=== PATIENT | male | born 1995 | race African-American/Black ===

== ENCOUNTER 2017-01-16 08:06 | Emergency (ER) | payer OTHER ==
[~2017-01-16] VITALS: Ht 177.8 cm; Wt 73.9 kg
[2017-01-16 08:29] VITALS: BP 134/69
--- NOTE | 2017-01-16 08:34 | Emergency Room Report ---
History of Present Illness General Chief Complaint: Eye Problems Source: Patient Present Illness HPI 21-year-old male no significant past medical history presenting with right eye lid swelling for one month. Patient states he went to an urgent care as performed warm compresses intermittently which only for relieve this pain for a short amount of time. Patient has also been putting topical ointment which has not provided any relief. Denies any fever chills headache change in vision purulent drainage Allergies: Coded Allergies: No Known Allergies (Unverified , 01/16/17) Patient History Past Medical History: none Past Surgical History: none Pertinent Family History: none Nursing Documentation-[facility] Past Medical History: No Stated History Review of Systems All Other Systems: negative except mentioned in HPI Physical Exam Vital Signs Date Time Temp Pulse Resp B/P Pulse Ox O2 Delivery O2 Flow Rate FiO2 01/16/17 08:10 97.5 63 15 134/69 100 Room Air Sp02 EP Interpretation: reviewed, normal General Appearance: normal inspection, well appearing, no apparent distress, alert, GCS 15, non-toxic Head: normocephalic, atraumatic Eyes: right eye other - R upper eyelid chalazion TTP <1cm , bilateral eye EOMI , bilateral eye PERRL, bilateral eye normal inspection, bilateral eye visual acuity ENT: normal ENT inspection, normal pharynx, normal voice, moist mucus membranes Neck: normal inspection, full range of motion, supple Respiratory: normal inspection, lungs clear, normal breath sounds, no respiratory distress, no retraction, no wheezing, speaking full sentences, chest symmetrical Cardiovascular #1: normal inspection, regular rate, rhythm, normal capillary refill Gastrointestinal: normal inspection, non tender, soft Musculoskeletal: normal inspection, back normal, normal range of motion, non- tender Neurologic: normal inspection, alert, oriented x3, responsive, motor strength/ tone normal, sensory intact, normal gait, speech normal Psychiatric: normal inspection, judgement/insight normal, memory normal Skin: normal inspection, normal color, no rash, warm/dry, well hydrated, normal turgor Medical Decision Making Diagnostic Impression: Primary Impression: Chalazion of right upper eyelid ER Course 21 yo M w/ R upper eyelid swelling x 1 mo appears to be chalazion on physical exam. There does not appear to be any acute infection so no antibiotics are indicated at this time. Plan: No intervention indicated at this time Disposition: Patient is to be discharged to home Patient is instructed to followup with an electric freight car operator within one week. Patient is told that this is likely a chalazion, and he may need injection or incision and drainage by an electric freight car operator. [employer] Team Leader may also perform biopsy. Strict return precautions discussed with patient such as fever chills rapid spread around the eye or change in vision.Patient is instructed to continue warm compresses. Last Vital Signs Date Time Temp Pulse Resp B/P Pulse Ox O2 Delivery O2 Flow Rate FiO2 01/16/17 08:10 97.5 63 15 134/69 100 Room Air Disposition: HOME, SELF-CARE Condition: Stable Patient Instructions: Chalazion Additional Instructions: Please follow up with your primary care doctor within 3 days. Please make an appointment to see an electric freight car operator within 1 week. Please call your insurance to find an electric freight car operator or you may also call: Dr Davin Gabriel - [phone] Please return to the emergency room immediately if you are experiencing severe or worsening pain, high fevers or chills, spread of rash to face, or vision loss. Julieta King M.D. Jan 16, 2017 08:34
[2017-01-16 08:35] VITALS: BP 134/69
== END 2017-01-16 08:48 | disposition home or self-care (01) ==
LOC: EMR 08:35
DX: H00.11 Chalazion right upper eyelid (principal)
CPT/HCPCS: 99282

== ENCOUNTER 2017-07-21 20:19 | Emergency (ER) | payer OTHER ==
[~2017-07-21] VITALS: Ht 177.8 cm; Wt 62.1 kg
[2017-07-21 20:40] VITALS: BP 123/77
[2017-07-21] MEDS ORDERED: Methocarbamol 750mg tab ORAL ONE (21:15)
[2017-07-21] MEDS ORDERED: Ketorolac 30mg Inj IM ONE (21:15)
[2017-07-21] MEDS ORDERED: IBUPROFEN600 MG ORAL (21:18)
[2017-07-21] MEDS ORDERED: LIDOCAINE700 M1 TP (21:18)
[2017-07-21] MEDS ORDERED: ROBAXIN-750750 MG PO (21:18)
[2017-07-21 21:28] VITALS: BP 123/77
--- NOTE | 2017-07-21 22:22 | Emergency Room Report ---
History of Present Illness General Chief Complaint: Back Injury Source: Patient Present Illness HPI 21-year-old male with chronic back pain for 4 years p/w back pain. Pain is localized to bilateral upper and lower back, sharp in nature, no radiation. Movement worsens pain. There are no alleviating factors. Patient did not take any medication for the pain Patient has experienced this similar pain in the past. Mother at bedside, states that patient has a history of scoliosis, has had chronic back pain, but has not seen a doctor recently for it. Denies trauma. Denies lower extremity weakness/numbness, no bowel/bladder retention or incontinence, saddle anesthesia. Denies fever, chills, abdominal pain, n/v, dysuria/hematuria. No history of IVDA Allergies: Coded Allergies: No Known Allergies (Unverified , 01/16/17) Patient History Past Medical History: see triage record Past Surgical History: none Pertinent Family History: none Reviewed Nursing Documentation: PMH: Agreed, PSxH: Agreed Nursing Documentation-PMH Past Medical History: No Stated History Review of Systems All Other Systems: negative except mentioned in HPI Physical Exam Vital Signs Date Time Temp Pulse Resp B/P (MAP) Pulse Ox O2 Delivery O2 Flow Rate FiO2 07/21/17 20:36 97.8 87 18 123/77 98 Room Air 97.9 Sp02 EP Interpretation: reviewed, normal General Appearance: alert, GCS 15, non-toxic, mild distress Head: normocephalic, atraumatic Eyes: bilateral eye normal inspection, bilateral eye PERRL, bilateral eye EOMI ENT: normal ENT inspection, normal pharynx, normal voice, moist mucus membranes Neck: normal inspection, full range of motion, supple Respiratory: normal inspection, lungs clear, normal breath sounds, no respiratory distress, no retraction, no wheezing, speaking full sentences, chest symmetrical Cardiovascular #1: normal inspection, regular rate, rhythm, no edema, normal capillary refill Cardiovascular #2: 2+ radial (R), 2+ radial (L) Gastrointestinal: normal inspection, non tender, soft, non-distended, no guarding Musculoskeletal: other - Bilateral paraspinal upper thoracic tenderness, no midline tenderness, full range of motion of back, full range of motion of all other extremities Neurologic: normal inspection, alert, oriented x3, responsive, whale trainer III-XII nml as tested, motor strength/tone normal, sensory intact, normal gait, speech normal Psychiatric: normal inspection, judgement/insight normal, memory normal Skin: normal inspection, normal color, no rash, warm/dry, well hydrated, normal turgor Medical Decision Making Diagnostic Impression: Primary Impression: Chronic back pain ER Course 21-year-old male with chronic back pain p/w back pain DDX: Likely musculoskeletal back pain vs. muscular strain vs. sciatica Fracture is unlikely given patients age, no midline tenderness, no history of trauma, and that patient is ambulatory. Therefore, at this time no imaging is indicated Serious diagnoses such as cord compression, epidural abscess is unlikely in this patient given the clinical scenario and abscess of neurological symptoms or findings. Patient appears nontoxic. Plan: Toradol, robaxin ER course: Patient has remained nontoxic appearing and ambulatory in the ED. Pain improved w/ medications Disposition: Patient will be discharged to home with prescription of motrin and robaxin., Lidocaine patches Patient and mother was educated that since this has been a chronic issue, need to see primary care doctor, may need physical therapy Patient cautioned of the effects of robaxin including possible impairment of physical or mental abilities. Patient was instructed to refrain from operating machinery or driving. Patient is also cautioned on the GI effects of motrin and to take sparingly. Patient verbalized understanding. Strict precautions discussed with patient on when to emergently return to the ED which includes severe/worsening back pain, leg weakness/numbness, urinary retention/incontinence, fever or chills, which may indicate severe illness. Patient is to follow up with their PMD within 5 days. Patient agrees with plan. Please note that this Emergency Department Report was dictated using [employer] adjuster technology software, occasionally this can lead to erroneous entry secondary to interpretation by the dictation equipment. Last Vital Signs Date Time Temp Pulse Resp B/P (MAP) Pulse Ox O2 Delivery O2 Flow Rate FiO2 07/21/17 21:28 97.9 72 18 123/77 98 Room Air 208.2 Disposition: HOME, SELF-CARE Condition: Improved Scripts Lidocaine (Lidocaine) 1 Each Adh..patch 700 MG TP EVERY 12 HOURS, #30 PATCH Prov: Retino,Clairose M.D. 07/21/17 Ibuprofen* (MOTRIN*) 600 Mg Tablet 600 MG ORAL Q8H Y for For Pain, #30 TAB 0 Refills Prov: Retino,Clairose M.D. 07/21/17 Methocarbamol* (ROBAXIN-750*) 750 Mg Tablet 750 MG PO QID, #28 TAB 0 Refills Prov: Julieta King M.D. 07/21/17 Referrals: [facility]ERR[facility] (PCP) Patient Instructions: Back Pain, Adult Julieta King M.D. Jul 21, 2017 22:22
== END 2017-07-21 21:30 | disposition home or self-care (01) ==
LOC: EMR 21:16
DX: M54.5 Low back pain (principal); M54.6 Pain in thoracic spine; G89.29 Other chronic pain
CPT/HCPCS: 96372; 99283; J1885